=== PATIENT | male | born 1975 | race Caucasian/White ===

== ENCOUNTER 2016-11-18 22:11 | Inpatient (IN) | payer OTHER ==
--- NOTE | ~2016-11-18 | PA ---
Unit #: [id number] #: [id number] Patient: DARLEEN WATKINS [id number] [place] [address] [id number] MR#: [id number] NAME: DARLEEN WATKINS. ROOM: P209 Age: 41 Sex: M Admission Date: 11/18/2016 : 1975 Date of Assessment: 11/19/2016 Attending Physician: Salazar Moon M.D. Admitting Physician: Salazar Moon M.D. Primary Care Physician: Primary Care Physician No PSYCHIATRIC ASSESSMENT INFORMANTS Patient reliable; OLOP, reliable. CHIEF COMPLAINT Opioid addiction. HISTORY OF PRESENT ILLNESS Darleen is a 41-year-old man, who reports he has been using 2 g of heroin daily and has active withdrawal symptoms when he stops using. He also reports a history of withdrawal seizures from other substances. 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 He was admitted for detox. PAST PSYCHIATRIC HISTORY Previous treatment at the [facility] and at [facility] out of town. He currently takes psychiatric medications. FAMILY PSYCHIATRIC HISTORY The patient's father and brother are alcoholics. SOCIAL HISTORY The patient denies any history of abuse. He is , heterosexual man, whose is supportive. 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 PAST MEDICAL HISTORY Significant for hepatitis C and history of withdrawal seizures. MEDICATIONS None currently. ALLERGIES Penicillin. SUBSTANCE ABUSE HISTORY As noted above. MENTAL STATUS EXAMINATION Darleen presented as a mildly disheveled man, who appeared his stated age. He was cooperative with the examination. His speech was spontaneous and easily understood. Musculoskeletal examination was calm. His mood was mildly depressed with a congruent affect. He was alert and fully Unit #: [id number] #: [id number] Patient: DARLEEN WATKINS oriented. Memory and concentration were fair to good. Thought processes were goal directed with no psychosis and no suicidal ideation. Insight and judgment were intact. Fund of knowledge and abstraction were intact. ASSETS AND LIABILITIES The patient is familiar with local resources and has supportive family. His Liabilities include difficulty maintaining sobriety, and interference with work. ADMITTING DIAGNOSES AXIS I: Opioid dependence with withdrawal, uncomplicated, F11.23. AXIS II: No diagnosis. AXIS III: History of hepatitis C, history of withdrawal seizures. AXIS IV: AXIS V: PSYCHIATRIC PLAN The patient was admitted and placed on opioid detox protocol. He will enroll in dual diagnosis groups and activities, and a physical examination and laboratory studies will be ordered and reviewed. TREATMENT GOALS Resolution of intoxication, improvement in insight, and improvement in coping skills. DISCHARGE PLANNING Follow up with rehab facility of choice. ESTIMATED LENGTH OF STAY 5 days. Dictated by... Salazar Moon M.D. AMERICA/nasreen TD: 12/28/2016 22:25 JOB #: [id number] PSYCHIATRIC ASSESSMENT Page 1 of 1 X Salazar Moon MD X PSYCHIATRIC ASSESSMENT
--- NOTE | ~2016-11-18 | DS ---
Unit #: [id number] #: [id number] Patient: DARLEEN WATKINS [id number] [facility] [address] [place] [address] [id number] MR#: [id number] NAME: DARLEEN WATKINS. ROOM: P209 Age: 41 Sex: M Admission Date: 11/18/2016 : 1975 Discharge Date: 11/20/2016 Attending Physician: Salazar Moon M.D. Primary Care Physician: Primary Care Physician No DISCHARGE SUMMARY REASON FOR ADMISSION The patient is a 41-year-old, , white male, admitted to the [facility] unit under the care of Dr. Moon for opioid detox. HOSPITAL COURSE The patient was admitted to the [facility] unit and placed on routine detoxification protocol for opioids. His detox was an uneventful one and he was accepted at [facility] on 11/21/2016. Discharge was ordered. FINAL DIAGNOSIS Opioid use disorder. DISPOSITION ON DISCHARGE The patient is discharged on no psychotropic or other medications. FOLLOWUP He will follow up through the auspices of [facility]. PROGNOSIS His prognosis is considered fair. Dictated by... Arnie Porter M.D. EL/nasreen TD: 11/21/2016 06:18 JOB #: [id number] DISCHARGE SUMMARY Page 1 of 1 X Arnie Porter MD X DISCHARGE SUMMARY
--- NOTE | ~2016-11-18 | HP ---
Unit #: [id number] #: [id number] Patient: DARLEEN WATKINS [id number] [place] [address] [id number] MR#: [id number] NAME: DARLEEN WATKINS. ROOM: P209 Age: 41 Sex: M Admission Date: 11/18/2016 : 1975 Attending Physician: Salazar Moon M.D. Admitting Physician: Salazar Moon M.D. Primary Care Physician: Primary Care Physician No HISTORY AND PHYSICAL HISTORY OF PRESENT ILLNESS Darleen is a 41 year old admitted to [address] [place] [address] because of his drug use. He shoots heroin. PAST MEDICAL HISTORY 1. Long history of opioid abuse to include IV heroin. 2. Hepatitis C. a. He has completed treatment. PAST SURGICAL HISTORY Nothing reported ALLERGIES Penicillin. SOCIAL HISTORY Smokes one pack per day. Denies alcohol. Admits to a long history of opioid abuse to include IV heroin. FAMILY HISTORY Medically noncontributory. REVIEW OF SYSTEMS CONSTITUTIONAL: No fever or chills. HEENT: Denies any sore throat, ear pain or runny nose. CARDIOVASCULAR: Denies chest pain, irregular heart rhythm or palpitations. CHEST: Denies shortness of breath or cough. No hemoptysis. GASTROINTESTINAL: Denies nausea, vomiting, diarrhea or chronic constipation. ENDOCRINE: Denies history of increased thirst or urination. No recent significant weight loss or gain. GENITOURINARY: Denies dysuria, frequency, or hematuria. SKIN: Denies any rashes. HEMATOLOGIC: Denies history of increased bleeding or bruising. MUSCULOSKELETAL: Denies any hot, swollen joints. No generalized muscle pain. NEUROLOGIC: Denies problems with vision or speech. No frequent, severe headaches. No numbness, tingling or weakness in any extremities. Denies loss of bladder or bowel control. CURRENT MEDICATIONS Detox protocol Unit #: [id number] #: [id number] Patient: DARLEEN WATKINS PHYSICAL EXAMINATION GENERAL: Alert, well-nourished, in no apparent distress. VITAL SIGNS: Blood pressure 126/88, heart rate 80, respirations 16, temperature 98.6. WEIGHT: 180 pounds. HEIGHT: 5'10". SKIN: Warm and dry without rash or lesion. HEENT: Normocephalic. TMs not viewed. Oral and nasal passages clear. Conjunctivae clear. Pupils equal, round and reactive to light and accommodation. Extraocular movements intact. NECK: Supple without lymphadenopathy or thyromegaly. HEART: Regular rate and rhythm without murmur. LUNGS: Clear. ABDOMEN: Soft, nontender. : Not done. EXTREMITIES: No evidence of cyanosis, clubbing or edema. Moves all extremities without focal deficit. NEUROLOGICAL: Grossly within normal limits. Cranial Nerves: II: Visual gates are intact. III, IV AND : Extraocular movements are intact. Pupils are equal, round and reactive to light. V: Facial sensation is grossly normal. VII: Facial movements and expression are normal. VIII: Auditory acuity grossly intact. IX, X: Uvula is midline. Phonation is normal. XI: Patient shrugs shoulders and turns head normally. XII: Tongue protrudes in the midline. Sensory and Motor Function: Sensory and motor sensation is grossly normal. Motor: moves all extremities well. Coordination: Gait is normal. Deep Tendon Reflexes: Intact. IMPRESSION Psychiatric admission RECOMMENDATIONS PSYCHIATRIC: Per psychiatrist. MEDICAL: I see no contraindications to participating in facility's activities. MEDICAL PROGNOSIS Good. MEDICAL CONDITION Stable. Dictated by... Esthela Carlisle PYaneliAYaneli-Malissa. for Fidelia Cha/africa TD: 11/19/2016 23:10 JOB #: [id number] Unit #: [id number] #: [id number] Patient: DARLEEN WATKINS HISTORY AND PHYSICAL Page 1 of 1 X Esthela Carlisle X HISTORY AND PHYSICAL
[2016-11-19 09:29] LABS: BASOPHIL# 0.1 X10e3 (0-0.3); BASOPHIL% 0.8 % (0-2.5); EOSINOPHIL# 0.3 X10e3 (0-0.7); HEMATOCRIT 41.2 % (38.0-50.0); HEMOGLOBIN 13.6 gm/dL (13.0-16.0); LYMPHOCYTE# 2.8 X10e3 (1.0-3.5); LYMPHOCYTE% 43.2 % (17.0-45.0); MEAN CELL VOLUME 82.8 FL (83-96); MEAN CORPUSCULAR HEMOGLOBIN 27.3 PG (28-34); MEAN PLATELET VOLUME 8.6 FL (6.5-11.5); MONOCYTE# 0.7 X10e3 (0-1.0); MONOCYTE% 10.4 % (3.0-12.0); NEUTROPHIL# 2.7 X10e3 (1.5-7.1); NEUTROPHIL% 41.6 % (40-75); PLATELET COUNT 189 X10e3 (140-420); RED BLOOD COUNT 4.98 X10e (3.90-5.60); RED CELL DISTRIBUTION WIDTH 13.1 % (11.0-15.5); WHITE BLOOD COUNT 6.6 X10e3 (4.0-10.5)
[2016-11-19 09:31] LABS: DIFF IND NO
[2016-11-19 09:43] LABS: ALBUMIN SERUM 3.5 g/dL (3.5-5.0); BILIRUBIN,TOTAL 0.3 mg/dL (0.2-2.0); BUN/CREATININE RATIO 13.33; CALCIUM SERUM 9.2 mg/dL (8.4-10.2); CREATININE SERUM 1.2 mg/dL (0.6-1.4); GLOM FILT RATE Estimated 74.7 mL/min (>60); PROTEIN TOTAL SERUM 6.1 g/dL (6.0-8.3)
[2016-11-19 12:51] LABS: URINE APPEARANCE CLEAR; URINE BILIRUBIN NEG (NEG); URINE BLOOD NEG (NEG); URINE COLOR YELLOW; URINE GLUCOSE NEG (NEG); URINE KETONE NEG (NEG); URINE LEUKOCYTE ESTERASE NEG (NEG); URINE NITRATE NEG (NEG); URINE PROTEIN NEG (NEG); URINE SPECIFIC GRAVITY 1.019 (1.003-1.035); URINE UROBILINOGEN 0.2 MG/DL (NEG)
[2016-11-19 13:34] LABS: AMPHETAMINE POS (NEG); BARBITURATES NEG (NEG); BENZODIAZEPINES NEG (NEG); COCAINE POS (NEG); MARIJUANA NEG (NEG); OPIATES POS (NEG); TRICYCLIC ANTIDEPRESSANTS NEG (NEG); U METHADONE NEG (NEG)
== END 2016-11-21 09:51 | disposition home or self-care (01) | DRG 897 ==
LOC: POF 22:11 → P2S 23:34
PROVIDERS: Psychiatry & Neurology Psychiatry
PROC: HZ2ZZZZ Detoxification Services for Substance Abuse Treatment (ICD-10-PCS; principal; 2016-11-18)
DX: F11.20 Opioid dependence, uncomplicated (principal); B19.20 Unspecified viral hepatitis C without hepatic coma; F17.210 Nicotine dependence, cigarettes, uncomplicated; Z88.0 Allergy status to penicillin
CPT/HCPCS: 80053; 80307; 81003; 85025; 86592